=== PATIENT | male | born 1995 | race Caucasian/White ===

== ENCOUNTER 2021-12-05 14:41 | Emergency (ER) | payer SELFPAY | END 2021-12-05 20:45 | disposition left against medical advice (07) | LOC: ER 14:42 | DX: M25.519 Pain in unspecified shoulder (principal); Z53.21 Procedure and treatment not carried out due to patient leaving prior to being seen by health care provider ==

== ENCOUNTER 2023-08-10 12:34 | Emergency (ER) | payer SELFPAY ==
[~2023-08-10] VITALS: Ht 177.8 cm; Wt 100.0 kg
[2023-08-10 12:37] VITALS: BP 132/84; PULSE 82; RESP 18; TEMP 97.9; O2SAT 100
== END 2023-08-10 18:00 | disposition left against medical advice (07) ==
LOC: ER 12:34
DX: M79.602 Pain in left arm (principal); Z53.21 Procedure and treatment not carried out due to patient leaving prior to being seen by health care provider
CPT/HCPCS: 99281; A6449